=== PATIENT | male | born 1960 | race Caucasian/White ===

== ENCOUNTER 2023-03-30 13:45 | Outpatient (RCR) | payer BC, SELFPAY | END 2023-05-06 14:24 | disposition home or self-care (01) | PROVIDERS: PCP Family Medicine; Visit Provider Family Medicine | DX: M76.60 Achilles tendinitis, unspecified leg (principal); Z74.09 Other reduced mobility; R53.1 Weakness; Z51.89 Encounter for other specified aftercare | CPT/HCPCS: 97110; 97140; 97161 ==

== ENCOUNTER 2023-09-11 11:12 | Emergency (ER) | payer MEDICARE, BC, SELFPAY ==
[2023-09-11 11:22] VITALS: BP 161/100; PULSE 59; RESP 16; TEMP 36.8; O2SAT 98; BMI 31.4
--- NOTE | 2023-09-11 11:33 | CT_ITS ---
Patient: MG WRIGHT Facility:?[facility] RIS Patient ID:?[id number] Site Patient ID:?[id number]. Site :?[id number] Study:?CT-Abdomen/Pelvis w/ 110cc [id number]/31/2024 1:43:23 PM Ordering Physician:Salvador Cardenas Final Report: INDICATION: Right lower quadrant pain.. TECHNIQUE: CT abdomen and pelvis acquired with 110 cc Isovue 370 IV contrast. COMPARISON: None. FINDINGS: Lower chest: Unremarkable. Liver: A few scattered too small to characterize hypodensities within the liver. These likely represent cysts. Gallbladder and bile ducts: Gallbladder is absent. No intra or extrahepatic biliary ductal dilatation. Pancreas: Unremarkable. No mass or inflammation. Spleen: Unremarkable. Normal in size. No masses. Adrenal glands: Unremarkable. No nodules. Kidneys: Lobulated cyst at the superior pole of the right kidney with internal enhancing septation. In total the cyst measures approximately 8.2 centimeters in diameter. No hydronephrosis or hydroureter bilaterally. No renal or ureteral stones. GI tract: Scattered colonic diverticuli. No evidence of diverticulitis. Appendix is within normal limits. No bowel obstruction. Tiny hiatal hernia. Vasculature: Abdominal aorta is normal in caliber. Mesenteric arteries are patent. Lymph nodes: No lymphadenopathy. Peritoneum/Abdominal Wall: Bilateral fat containing inguinal hernias. Tiny fat containing umbilical hernia. Pelvis: Circumferential bladder wall thickening. Prostate is unremarkable. Bones: Unremarkable for age. IMPRESSION: 1. no acute intra-abdominal process identified. 2. Circumferential bladder wall thickening may be related to incomplete distention. Correlate with UA for cystitis. 3. Lobulated cyst at the superior pole of the right kidney versus 2 separate cysts. There is possible enhancing septation versus renal parenchyma in between the cysts. Consider further evaluation with nonemergent, outpatient ultrasound. Please note that all CT scans at this facility use dose modulation, iterative reconstruction, and/or weight-based dosing when appropriate to reduce radiation dose to as low as reasonably achievable. Dictated by Sanket Simms MD @ 09/11/2023 2:25:26 PM Signed by:?Sanket Simms MD @09/11/2023 2:25:26 PM (Electronic Signature)
--- NOTE | 2023-09-11 11:43 | ED_ITS ---
HPI - Abdominal Pain General Date Seen: 09/11/23 Chief Complaint: Abdominal Pain Stated Complaint: Lower R abdominal pain Time Seen by Provider: 09/11/23 11:14 Source: patient Mode of arrival: ambulatory Limitations: no limitations History of Present Illness HPI narrative: Patient is a 63-year-old male presenting for right lower quadrant abdominal pain. He states it is a dull ache and has no increased tenderness when he presses on it. He states the pain started last night and thought it was getting worse today so he came to the emergency department to be evaluated. 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 Still has appendix. Also noticed his stools were smaller caliber compared to normal over the past day. Has been drinking plenty of fluids but has not ate much today due to decreased appetite. Denies having symptoms like this before. Denies fevers, chills, chest pain, shortness of breath, nausea/vomiting, lightheadedness, dizziness. States the pain is relatively mild. No other concerns noted Related Data Home Medications Medication Instructions Recorded Confirmed lisinopril 40 mg tablet 40 mg PO DAILY 06/01/23 06/01/23 polymyxin B sulfate 10,000 ophthalmic (eye) 06/01/23 06/01/23 unit-trimethoprim 1 mg/mL eye drops simvastatin 20 mg tablet 20 mg PO QPM 06/01/23 06/01/23 tamsulosin 0.4 mg capsule 0.4 mg PO DAILY 06/01/23 06/01/23 Previous Rx's Medication Instructions Recorded azithromycin 250 mg tablet See Rx Instructions PO .COMPLEX #6 06/01/23 tabs Allergies Allergy/AdvReac Type Severity Reaction Status Date / Time Penicillins Allergy Verified 09/11/23 11:25 Review of Systems Status of ROS Reports: 10 or more systems reviewed and unremarkable except as noted in History and below [facility] Social History Smoking Status: Never smoker How often do you have a drink containing alcohol: monthly or less AUDIT-C Alcohol total score: 1 Non-prescribed substance use: denies use Exam Narrative: Exam Narrative: Const: Well-nourished, Well-developed, in mild distress Eyes: PERRL, no conjunctival injection, and symmetrical lids HENT: Atraumatic external nose and ears. Moist mucous membranes. Neck: Symmetric, trachea midline, No thyromegaly. CVS: RRR, No murmurs or gallops. Peripheral pulses 2+ and equal in all extremities RESP: Unlabored respiratory effort. Clear to auscultation bilaterally. GI: Very Mild right lower quadrant tenderness about 4 cm lateral to McBurney's point. Nondistended, No rebound or guarding. MSK:Extremities w/o deformity, Normal Active ROM Skin: Warm, Dry. No rashes or lesions. Neuro: Normal Muscle tone, No focal neurological deficits. Psych: Awake, Alert, & Oriented x3. Appropriate mood and affect. Const: Vital Signs, click to edit/add: Vital Signs - 24 hr 09/11/23 11:22 Temperature 98.2 F Pulse Rate [Pulse Oximeter] 59 L Respiratory Rate 16 Blood Pressure [Ri ght Upper Arm] 161/100 H Pulse Oximetry 98 Oxygen Delivery Me thod Room Air Course Vital Signs Vital signs: Initial Vital Signs Temperature 98.2 F 09/11/23 11:22 Temperature Source Temporal Artery Scan 09/11/23 11:22 Pulse Rate 59 L 09/11/23 11:22 Respiratory Rate 16 09/11/23 11:22 Blood Pressure 161/100 H 09/11/23 11:22 Blood Pressure Mean 120 H 09/11/23 11:22 Blood Pressure Position Sitting 09/11/23 11:22 Pulse Oximetry 98 09/11/23 11:22 Oxygen Delivery Method Room Air 09/11/23 11:22 Vital Signs Temperature 98.2 F 09/11/23 11:22 Pulse Rate 59 L 09/11/23 11:22 Respiratory Rate 16 09/11/23 11:22 Blood Pressure 161/100 H 09/11/23 11:22 Pulse Oximetry 98 09/11/23 11:22 Oxygen Delivery Method Room Air 09/11/23 11:22 Temperature 98.2 F 09/11/23 11:22 Pulse Rate 59 L 09/11/23 11:22 Respiratory Rate 16 09/11/23 11:22 Blood Pressure 161/100 H 09/11/23 11:22 Pulse Oximetry 98 09/11/23 11:22 Oxygen Delivery Method Room Air 09/11/23 11:22 MDM - Abdominal Pain MDM Narrative Medical decision making narrative: Patient is a 63-year-old male presenting for right lower quadrant abdominal pain. Pain is lateral to McBurney's point but this does not mean this is an appendicitis. Has had multiple abdominal surgeries in the past so I do have some concern for small bowel obstruction. Is passing stool but says it is smaller caliber this could be signs of a partial small-bowel obstruction. Does not have a gallbladder. Symptoms could also be musculoskeletal in nature but he has minimal pain to palpation. Constipation is also on the differential. Will order a CBC, CMP, lipase, COVID/flu/RSV, CT scan with IV contrast of the abdomen and pelvis. Patient states he is not need any pain or nausea medicine at this time. CBC shows slightly low white blood cells at 3.8 but otherwise no concerning findings. CMP shows no concerning findings. Lipase is slightly elevated at 451 but does not be criteria for pancreatitis. COVID/flu/RSV is negative. CT scan showed concerns for cystitis. Urinalysis was ordered which does not show a UTI. He is otherwise doing well and can be discharged home. Unsure was causing his pain right now but is not appear to be any acute concerning findings. He is agreeable to this plan. Lab Data Labs: Lab Results 09/11/23 09/11/23 Range/Units 11:45 14:34 WBC 3.80 L (4.50-11.00) K/uL RBC 4.84 (4.30-5.90) m/uL Hgb 14.5 (13.5-17.5) gm/dL Hct 42.3 (37.0-53.0) % MCV 87 (80-100) fL MCH 30 (26-34) pg MCHC 34 (32-36) gm/dL RDW Coeff of Juan Manuel 12.4 (11.5-15.5) % Plt Count 213 (140-440) K/uL Neut % (Auto) 47.9 (42.0-72.0) % Lymph % (Auto) 39.2 (20-44) % Sutter % (Auto) 7.1 (0.0-11.0) % Eos % (Auto) 4.7 (0.0-7.0) % Baso % (Auto) 1.1 (0.0-3.0) % Neut # (Auto) 1.80 (1.7-7.0) K/uL Lymph # (Auto) 1.50 (0.90-2.90) K/uL Sutter # (Auto) 0.30 (0.00-0.90) K/UL Eos # (Auto) 0.20 (0.00-0.50) K/uL Baso # (Auto) 0.00 (0.00-0.30) K/uL Abs Immat Gran (auto) 0.00 (0.00-0.30) K/uL Imm/Tot Granulo (auto) 0.0 % Sodium 141 (135-149) mmol/L Potassium 4.1 (3.6-5.1) mmol/L Chloride 106 (96-114) mmol/L Carbon Dioxide 25 (20-32) mmol/L Anion Gap 10 (7-15) mEq/L BUN 15 (7-30) mg/dL Creatinine 0.8 (0.5-1.5) mg/dL Estimated Creat Clear 78.44 Estimated GFR 98 ml/min Glucose 103 (60-115) mg/dL Calcium 9.3 (8.4-10.6) mg/dL Total Bilirubin 0.7 (0.1-1.5) mg/dL AST 26 (12-35) U/L ALT 29 (4-50) U/L Alkaline Phosphatase 55 (40-150) U/L Total Protein 7.2 (6.0-8.3) g/dL Albumin 4.3 (3.3-5.0) g/dL Lipase 451 H (23-300) U/L Urine Color Yellow (Yellow) Urine Appearance Clear (Clear) Urine pH 7.5 (5.0-8.5) Ur Specific [place] 1.010 (1.000-1.030) Urine Protein Negative (Negative) Urine Glucose (UA) Negative (Negative) Urine Ketones Negative (Negative) Urine Blood Trace-intact A (Negative) Urine Nitrite Negative (Negative) Urine Bilirubin Negative (Negative) Urine Urobilinogen 0.2 (0.2-1.0) Ur Leukocyte Esterase Negative (Negative) Urine RBC 0-2 (0-2) Urine WBC 0-2 (0-5) Ur Squamous Epith Cells Few (None-Few) Urine Bacteria None (None) SARS-CoV-2 (PCR) Negative SARS-CoV-2 (Negative) Influenza Type A (PCR) Negative PCR FLU A (Negative) Influenza Type B (PCR) Negative PCR FLU B (Negative) RSV (PCR) Negative PCR RSV (Negative) Imaging Data CT scan abdomen pelvis: Attestation: I have reviewed the pertinent imaging results. Radiologist's impression: 1. no acute intra-abdominal process identified. 2. Circumferential bladder wall thickening may be related to incomplete distention. Correlate with UA for cystitis. 3. Lobulated cyst at the superior pole of the right kidney versus 2 separate cysts. There is possible enhancing septation versus renal parenchyma in between the cysts. Consider further evaluation with nonemergent, outpatient ultrasound. Please note that all CT scans at this facility use dose modulation, iterative reconstruction, and/or weight-based dosing when appropriate to reduce radiation dose to as low as reasonably achievable. Dictated by Sanket Simms MD @ 09/11/2023 2:25:26 PM Discharge Plan Discharge Clinical Impression: Abdominal pain Qualifiers: Abdominal location: right lower quadrant Qualified Code(s): R10.31 - Right lower quadrant pain Patient Disposition: Home, Self-Care Condition: Stable Instructions: Abdominal Pain (ED) Additional Instructions: Lab work and imaging showed no concerning abnormalities. I am unsure was causing your acute abdominal pain but does not appear to be anything emergent. Just to let you know there is a cyst in your kidneys that is likely benign and non concerning but it is recommended you follow-up with the primary care provider for not emergent outpatient ultrasound. Prescriptions: No Action polymyxin B sulf-trimethoprim 10,000 unit- 1 mg/mL drops ophthalmic (eye) lisinopril 40 mg tablet 40 mg PO DAILY simvastatin 20 mg tablet 20 mg PO QPM tamsulosin 0.4 mg capsule 0.4 mg PO DAILY azithromycin 250 mg tablet See Rx Instructions PO .COMPLEX Qty: 6 0RF Rx Instructions: For 250 mg dose pack: take 500 mg today (day 1), then 250 mg for 4 days (days 2-5) PO Follow Up/Referrals: Provider,Not a Local [Referring] - Stand Alone Forms: [employer] Info Instructions
[2023-09-11 11:55] LABS: Basophils Percent Auto 1.1 % (0.0-3.0); Eosinophils Percent Auto 4.7 % (0.0-7.0); Hematocrit 42.3 % (37.0-53.0); Hemoglobin* 14.5 gm/dL (13.5-17.5); Lymphocytes Percent Auto 39.2 % (20-44); Mean Corpuscular HGB Conc 34 gm/dL (32-36); Mean Corpuscular Hemoglobin 30 pg (26-34); Mean Corpuscular Volume 87 fL (80-100); Monocytes Percent Auto 7.1 % (0.0-11.0); Neutrophils Percent Auto 47.9 % (42.0-72.0); Platelet Count* 213 K/uL (140-440); RDW Coefficient of Variation % 12.4 % (11.5-15.5); Red Blood Count 4.84 m/uL (4.30-5.90)
[2023-09-11 12:00] LABS: Slide Review Reflex No
[2023-09-11 12:07] LABS: Albumin* 4.3 g/dL (3.3-5.0); Chloride* 106 mmol/L (96-114)
[2023-09-11 12:08] LABS: Potassium* 4.1 mmol/L (3.6-5.1); Sodium* 141 mmol/L (135-149)
[2023-09-11 12:10] LABS: Alkaline Phosphatase* 55 U/L (40-150); Anion Gap 10 mEq/L (7-15); Aspartate Amino Transferase* 26 U/L (12-35); Bilirubin Total* 0.7 mg/dL (0.1-1.5); Blood Urea Nitrogen* 15 mg/dL (7-30); Carbon Dioxide* 25 mmol/L (20-32); Creatinine* 0.8 mg/dL (0.5-1.5); Est. Creatinine Clearance* 78.44; Estimated Glomerular Filt Rate 98 ml/min; Glucose* 103 mg/dL (60-115); Lipase* 451 U/L (23-300); Total Protein* 7.2 g/dL (6.0-8.3)
[2023-09-11 12:11] LABS: Alanine Aminotransferase* 29 U/L (4-50); Calcium* 9.3 mg/dL (8.4-10.6)
[2023-09-11 12:31] LABS: PCR FLU A Negative PCR FLU A (Negative); PCR FLU B Negative PCR FLU B (Negative); PCR RSV Negative PCR RSV (Negative); SARS PCR* Negative SARS-CoV-2 (Negative)
[2023-09-11 14:42] LABS: Appearance Urine Clear (Clear); Bilirubin Urine Negative (Negative); Blood Urine Trace-intact (Negative); Color Urine Yellow (Yellow); Glucose Urine Negative (Negative); Ketones Urine Negative (Negative); Leukocyte Esterase Urine Negative (Negative); Nitrite Urine Negative (Negative); Protein Urine Negative (Negative); Urobilinogen Urine 0.2 (0.2-1.0); pH Urine 7.5 (5.0-8.5)
[2023-09-11 14:51] LABS: RBC Urine 0-2 (0-2); Squamous Epithelial Cell Urine Few (None-Few); WBC Urine 0-2 (0-5)
== END 2023-09-11 16:08 | disposition home or self-care (01) ==
PROVIDERS: Emergency Provider Student in an Organized Health Care Education/Training Program; PCP Family Medicine
DX: R10.31 Right lower quadrant pain (principal)
CPT/HCPCS: 36415; 74177; 80053; 81001; 83690; 85025; 87631; 99283; 99284; Q9967

== ENCOUNTER 2024-02-08 12:30 | Outpatient (RCR) | payer MEDICARE, BC, SELFPAY | END 2024-06-07 23:59 | disposition home or self-care (01) | PROVIDERS: PCP Family Medicine; Visit Provider Family Medicine | DX: M54.42 Lumbago with sciatica, left side (principal); G89.29 Other chronic pain; Z51.89 Encounter for other specified aftercare | CPT/HCPCS: 97110; 97140; 97162 ==

== ENCOUNTER 2024-05-04 07:10 | Outpatient (CLI) | payer MEDICARE, BC, SELFPAY | END 2024-05-04 07:11 | disposition home or self-care (01) | LOC: INJ CL 07:11 | PROVIDERS: PCP Family Medicine; Visit Provider Family Medicine | DX: M54.16 Radiculopathy, lumbar region (principal); M51.369 Other intervertebral disc degeneration, lumbar region without mention of lumbar back pain or lower extremity pain | CPT/HCPCS: 62323; J0702; Q9966 ==